=== PATIENT | male | born 1940 | race Caucasian/White ===

== ENCOUNTER → 2017-06-19 | Outpatient (CLI) | payer OTHER ==
[~2017-06-19] VITALS: Ht 188 cm; Wt 107.2 kg
[~2017-06-19] MED LIST: ASPIR 8181 MG PO; CYCLOBENZAPRINE5 MG PO; FLOMAX0.4 MG PO; INDAPAMIDE2.5 MG PO; LISINOPRIL10 MG PO; MIRAPEX 0.250.25 M1 PO; PRAVACHOL40 MG PO; PROAIR RESPICL90 MCG INH; RESTASIS1 EACH OPHTHALMIC
--- NOTE | ~2017-06-19 | HPC ---
[facility] [place] [address] PAIN MANAGEMENT CONSULTATION Name: ASAEL REILLY Room #: [facility].#: [id number] Admission: 06/19/17 Attend Phys: Misael Hendrickson MD Discharge: Date of : 40 Report #: [id number] THIS REPORT FOR: //name// CC: Misael August MD DATE OF SERVICE: 06/19/2017 DATE OF SERVICE: 06/19/2017 REASON FOR VISIT: Epidural steroid injection requested by Dr. Lalo August before surgery to help with recovery. HISTORY OF PRESENT ILLNESS: The patient comes in today complaining of lumbar lower pain with radiculopathy in addition to bilateral osteoarthritis of the knees. He has surgery planned for this week and is concerned about the physical therapy that will be required due to his radicular pain and his back pain. Dr. August suggested that he receive an injection today. We did place a call to Dr. Espinoza's office to no avail, to try and make sure that he understood that we were going to do this and that there were no concerns. The patient had longstanding osteoarthritis and finally has made the decision to proceed with knee replacement. First knee will be the right, the left will follow. Pain in the back is described as an intermittent ____ and aching that is 8/10, made worse by prolonged sitting or bending. This is his concern with therapy and the recovery from his knee replacement. Pain drawing shows pain across the lumbosacral segment, radiating into the right hip. MEDICATIONS: Restasis eye drops, cyclobenzaprine, albuterol, aspirin, indapamide, Mirapex, pravastatin, tamsulosin, lisinopril. ALLERGIES: None. PAST MEDICAL HISTORY: Positive for hypertension, degenerative joint disease with osteoarthritis, obesity, hyperlipidemia, restless legs syndrome, COPD mild, history of mitral regurgitation. SOCIAL HISTORY: He is retired. Denies use of tobacco or alcohol. PHYSICAL EXAMINATION: Pleasant 76-year-old, is able to move from sitting to standing position, walks with some difficulty due to pain in his knees. Range of motion of the lumbar spine is good in flexion, extension, rotation, and [id number] tilt. Straight leg raising is mildly positive on the right more so [address] [address] PAIN MANAGEMENT CONSULTATION Name: ASAEL REILLY Room #: [facility].#: [id number] Admission: 06/19/17 Attend Phys: Misael Hendrickson MD Discharge: Date of : 40 Report #: [id number] than the left. Sensation is intact. Strength is intact. Deep tendon reflexes are 2+ at knees and trace at the ankles bilaterally. RADIOLOGIC IMAGING: X-rays show degenerative disk disease primarily at L2-L3 and L4-L5. IMPRESSION: 1. Degenerative disk disease in lumbosacral spine with right lumbar radiculopathy. 2. Osteoarthritis. RECOMMENDATION: Epidural steroid injection under fluoroscopic guidance. Potential risks and benefits discussed. The patient would like to proceed. He was taken to fluoroscopic suite, placed prone, skin prepped with ChloraPrep. Skin anesthetized over L4-L5 and a 20-gauge Tuohy epidural needle advanced in the epidural space using loss of resistance. There was no blood or CSF aspirated. I injected 5 mL of 0.5% lidocaine mixed with 40 mg of triamcinolone. He tolerated the procedure well and was observed for 45 minutes and discharged. Follow up as needed. By: [id number] Misael Hendrickson MD /nt
[2017-06-19 10:36] VITALS: BP 146/81
== END | disposition home or self-care (01) ==
LOC: PAIN 06:57
DX: M51.37 Other intervertebral disc degeneration, lumbosacral region (principal); M54.16 Radiculopathy, lumbar region; M19.90 Unspecified osteoarthritis, unspecified site; I10 Essential (primary) hypertension; J44.9 Chronic obstructive pulmonary disease, unspecified; E66.09 Other obesity due to excess calories; E78.5 Hyperlipidemia, unspecified; Z79.82 Long term (current) use of aspirin; Z79.899 Other long term (current) drug therapy

== ENCOUNTER → 2017-09-25 | Outpatient (CLI) | payer OTHER ==
[~2017-09-25] VITALS: Ht 188 cm; Wt 107.3 kg
[~2017-09-25] MED LIST changes: +PERCOCET PO
--- NOTE | ~2017-09-25 | HPC ---
[facility] [place] [address] PAIN MANAGEMENT CONSULTATION Name: ASAEL REILLY Room #: REG [facility] Richie#: [id number] Admission: 09/25/17 Attend Phys: Misael Hendrickson MD Discharge: Date of : 40 Report #: [id number] THIS REPORT FOR: //name// CC: Misael August DATE OF SERVICE: 09/25/2017 DATE OF REGISTRATION: 09/25/2017 Followup visit for low back pain with radiculopathy. The patient returns to pain clinic today for an epidural steroid injection. He was last here in May just before he had his first knee replacement. He had another operation in July, so in the fall and early winter of 2016, he had his right knee first then his left knee replaced. He has done better with his left knee and it seems to feel better than the one that was done first. He is doing physical therapy on a regular basis. Therapist has noticed that he is having more pain that he considers radicular. It begins in his back and radiates into his legs, left worse than right. Much of this pain begins in midline and then starts down through the cheek of the buttock and down the posterior lateral aspect of the leg into the anterior thigh. Medications were reviewed and reconciled. He is on no blood thinners. Pain medications were reviewed and discussed. He is not on an opioid agreement with our clinic. He is using only cyclobenzaprine and oxycodone 5 as needed. All medications were reviewed and reconciled. He is on medication for blood pressure and Zestril. His BMI is 30.4, and he is watching his weight. He continues to exercise. His medications for pain are being prescribed by other physicians; therefore, he is not on an opioid agreement through our clinic. He is not currently a fall risk and is gaining strength on a regular basis. His functional assessment is 20/70, suggesting good adaptation. His risk assessment tool was performed even though we are not providing his opioids and it is 0/3. PHYSICAL EXAMINATION: Pleasant, outgoing 76-year-old. His blood pressure is 129/70, heart rate 88. BMI is 30.9. He ambulates with a stable gait. He has some swelling still around the knees. They have been healed nicely. Straight leg raising bilaterally is positive, radiating pain into the hips, it is worse on the right than the left. IMPRESSION: 1. Status post bilateral knee replacement, the first in May 2017 and the second in July. 2. Low back pain with radiculopathy, which has responded nicely to epidural [address] [address] PAIN MANAGEMENT CONSULTATION Name: ASAEL REILLY Agus Room #: REG [facility]#: [id number] Admission: 09/25/17 Attend Phys: Misael Hendrickson MD Discharge: Date of : 40 Report #: [id number] injections in the past. 3. Hypertension. 4. Osteoarthritis. PROCEDURE: Lumbar epidural steroid injection L3-L4 under fluoroscopic guidance. PROCEDURE: He was taken to fluoroscopic suite, placed prone, skin prepped with ChloraPrep. Skin anesthetized under L3-L4. A 20-gauge Tuohy epidural needle advanced in first attempt in the epidural space with loss of resistance. There was no blood or CSF aspirated. 1 mL of Omnipaque injected. Good spread of dye observed in the epidural space followed by 3 mL of 0.5% lidocaine mixed with 80 mg triamcinolone. He tolerated the procedure well and was observed for 45 minutes and discharged. Follow up as needed. <ELECTRONICALLY SIGNED> By: Misael Hendrickson MD 10/25/17 [id number] Misael Hendrickson MD /nt
[2017-09-25 14:48] VITALS: BP 129/70
== END | disposition home or self-care (01) ==
LOC: PAIN 07:08
DX: M54.16 Radiculopathy, lumbar region (principal); I10 Essential (primary) hypertension; M19.90 Unspecified osteoarthritis, unspecified site; Z98.890 Other specified postprocedural states; Z96.653 Presence of artificial knee joint, bilateral; Z79.899 Other long term (current) drug therapy; Z79.891 Long term (current) use of opiate analgesic; Z79.82 Long term (current) use of aspirin